=== PATIENT | female | born 1945 | race Caucasian/White ===

== ENCOUNTER 2017-06-13 08:51 | Inpatient (IN) | payer MEDICAID ==
[~2017-06-13] VITALS: Ht 149.9 cm; Wt 65.1 kg
[2017-06-13] MEDS ORDERED: PIPER-TAZO 3.375 GM IV (PMX) 100 ML IVPB STA (09:17)
[2017-06-13] MEDS ORDERED: morphine 4 MG/ML VIAL IV STA ×3 (09:17→13:43)
[2017-06-13] MEDS ORDERED: SODIUM CHLORIDE 0.9% 1L BAG IV* STA (09:17)
[2017-06-13] MEDS ORDERED: ONDANSETRON 4 MG INJ IV STA (09:17)
[2017-06-13] MEDS ORDERED: VANCOMYCIN 1 GM (PMX) 250 ML IVPB ONE (09:30)
[2017-06-13 09:50] LABS: BASOPHILS % 0.4 % (0.0-2.0); EOSINOPHILS # 0.2 10^3/ul (0.0-0.5); EOSINOPHILS % 3.7 % (0.0-7.0); HEMATOCRIT 33.8 % (37.0-47.0); HEMOGLOBIN 11.6 g/dl (12.0-16.0); LYMPHOCYTES # 1.4 10^3/ul (0.8-2.9); LYMPHOCYTES % 29.3 % (15.0-51.0); MEAN CORPUSCULAR HEMOGLOBIN 31.6 pg (29.0-33.0); MEAN CORPUSCULAR HGB CONC 34.3 g/dl (32.0-37.0); MEAN CORPUSCULAR VOLUME 92.1 fl (82.0-101.0); MEAN PLATELET VOLUME 10.9 fl (7.4-10.4); MONOCYTE # 0.5 10^3/ul (0.3-0.9); MONOCYTES % 9.8 % (0.0-11.0); NEUTROPHILS % 56.6 % (39.0-77.0); PLATELET COUNT 241 10^3/UL (140-415); RED BLOOD COUNT 3.67 10^6/ul (4.20-5.40); RED CELL DISTRIBUTION WIDTH 12.9 % (11.5-14.5); WHITE BLOOD COUNT 4.8 10^3/ul (4.8-10.8)
--- NOTE | 2017-06-13 09:59 | RADRPT ---
PROCEDURE: XR Tibia and Fibula. CLINICAL INDICATION: Leg wound TECHNIQUE: Two views of the left tibia and fibula are available for review. COMPARISON: None available FINDINGS: There is soft tissue swelling at the lower extremity. There is no acute osseous abnormality or evid ence of fracture. Minimal, nonspecific cortical hypertrophy seen at the medial lateral aspect of th e distal fibula without aggressive appearance. No soft tissue gas identified. IMPRESSION: 1. Soft tissue swelling of the lower leg. 2. No cortical destruction or soft tissue gas is seen. RPTAT: UU .Abner Lopes MD, MD Date Time Electronically viewed and signed by .Abner Lopes MD, on 06/13/2017 09:59 .d/
[2017-06-13 10:09] LABS: INR 0.95; PARTIAL THROMBOPLASTIN TIME 31.4 Sec (25.0-35.0); PROTIME 12.7 Sec (12.2-14.2)
[2017-06-13 10:16] LABS: ALBUMIN 3.7 g/dl (3.3-4.9); ALBUMIN/GLOBULIN RATIO 1.12; BILIRUBIN,INDIRECT 0.2 mg/dl (0-1.1); BILIRUBIN,TOTAL 0.2 mg/dl (0.2-1.3); C-REACTIVE PROTEIN 1.4 mg/dl (0.0-0.9); CALCIUM 8.7 mg/dl (8.4-10.2); CREATININE 0.65 mg/dl (0.44-1.00); POTASSIUM 3.9 mmol/L (3.5-5.1)
--- NOTE | 2017-06-13 10:20 | RADRPT ---
PROCEDURE: Ultrasound of the left lower extremity venous system. CLINICAL INDICATION: Left leg pain and swelling, deep venous thrombosis TECHNIQUE: Abebe scale with and without compression, color doppler, spectral doppler of the venous system of the left lower extremity was performed. Venous augmentation maneuvers were utilized. COMPARISON: No prior studies are available for comparison. FINDINGS: Common femoral vein: Patent. Femoral vein: Patent. Popliteal vein: Echogenic thrombus which is nonocclusive. Calf veins: Patent. No soft tissue abnormalities are identified. IMPRESSION: Chronic echogenic nonocclusive deep venous thrombus within the left popliteal vein. No evidence of acute deep venous thrombosis. RPTAT: AADD .Robert Salmon MD, MD Date Time Electronically viewed and signed by .Robert Salmon MD, on 06/13/2017 10:20 .B/
[2017-06-13 10:47] VITALS: PULSE 73; TEMP 97.5
[2017-06-13] MEDS ORDERED: ACETAMINOPHEN 325 MG TAB PO PRN ×2 (12:00→13:00)
[2017-06-13] MEDS ORDERED: ONDANSETRON 4 MG INJ IV PRN ×2 (12:00→13:00)
[2017-06-13] MEDS ORDERED: APIXABAN 5 MG TABLET PO ONE (12:00)
[2017-06-13] MEDS ORDERED: NACL 0.9% 3 ML SYG IV SCH (13:00)
[2017-06-13] MEDS ORDERED: ACETAMINOPHEN 650 MG SUPP PR PRN (13:00)
[2017-06-13] MEDS ORDERED: DOCUSATE SODIUM 100 MG CAP PO PRN (13:00)
[2017-06-13] MEDS ORDERED: BISACODYL 10 MG SUPP PR PRN (13:00)
[2017-06-13] MEDS ORDERED: HYDROCODONE/APAP (5/325) TAB PO PRN ×2 (13:00)
[2017-06-13] MEDS ORDERED: MAGNESIUM HYDROXIDE 30ML CUP PO PRN (13:00)
--- NOTE | 2017-06-13 13:50 | ERA ---
ER Documentation Chief Complaint Date/Time DATE: 06/13/17 TIME: 13:42 Chief Complaint LT FOOT ULCER X5 DAYS HPI This is a 72-year-old female, Latvian-speaking. 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 The family is mostly providing the history. It appears the patient has chronic venous stasis the left lower extremity. She does not follow up with the primary care physician on a regular basis last visit greater than 1 year ago. The family has noted that there is an ulceration to the medial aspect of the left leg causing significant pain that is 8 out of 10 and throbbing. No significant drainage or discharge. Patient denies any chest pain or shortness of breath. She has never been diagnosed with a DVT before. She does not take any medications on a regular basis. ROS All systems reviewed and are negative except as per history of present illness. Medications Home Meds No Active Prescriptions or Reported Meds Allergies Allergies: Coded Allergies: No Known Allergy (Unverified , 06/13/17) PMhx/Soc Medical and Surgical Hx: pt denies Medical Hx, pt denies Surgical Hx Hx Alcohol Use: No Hx Substance Use: No Hx Tobacco Use: No Smoking Status: Never smoker FmHx Family History: No diabetes Physical Exam Vitals Vital Signs Date Time Temp Pulse Resp B/P Pulse Ox O2 Delivery O2 Flow Rate FiO2 06/13/17 10:47 97.5 73 17 147/68 100 Room Air 06/13/17 09:45 Nasal Cannula 2 06/13/17 08:59 98.4 80 20 142/70 98 Physical Exam General: Well developed, well nourished, no acute distress Head: Normocephalic, atraumatic. Eyes: Pupils equally reactive, EOM intact ENT: Moist mucous membranes Neck: Supple, no lymphadenopathy Respiratory: Lungs clear bilaterally, no distress Cardiovascular: RRR, no murmurs, rubs, or gallops Abdominal: Soft, non-tender, non-distended, no peritoneal signs : Deferred MSK: Left lower extremity with venous stasis dermatitis with an ulceration approximately 2.5 cm in diameter to the medial aspect without crepitus drainage or discharge. The patient does have 2+ dorsalis pedis and posterior tibial pulses. No significant unilateral swelling is noted. Negative Homans sign. No crepitus to the leg. Neurologic: Alert and oriented, moving all extremities, normal speech, no focal weakness, no cerebellar signs Skin: As documented above Psych: Normal mood Result Diagram: 06/13/17 0925 06/13/17 0925 Results 24 hrs Laboratory Tests Test 06/13/17 09:17 06/13/17 09:25 06/13/17 11:08 06/13/17 13:18 Erythrocyte Sedimentation Rate 29.0mm/Hr White Blood Count 4.810^3/ul Red Blood Count 3.6710^6/ul Hemoglobin 11.6g/dl Hematocrit 33.8% Mean Corpuscular Volume 92.1fl Mean Corpuscular Hemoglobin 31.6pg Mean Corpuscular Hemoglobin Concent 34.3g/dl Red Cell Distribution Width 12.9% Platelet Count 15578^3/UL Mean Platelet Volume 10.9fl Neutrophils % 56.6% Lymphocytes % 29.3% Monocytes % 9.8% Eosinophils % 3.7% Basophils % 0.4% Nucleated Red Blood Cells % 0.0/100WBC Neutrophils # (Manual) 2.710^3/ul Lymphocytes # 1.410^3/ul Monocytes # 0.510^3/ul Eosinophils # 0.210^3/ul Basophils # 0.010^3/ul Nucleated Red Blood Cells # 0.010^3/ul Prothrombin Time 12.7Sec Prothrombin Time Ratio 1.0 INR International Normalized Ratio 0.95 Activated Partial Thromboplast Time 31.4Sec Sodium Level 140mmol/L Potassium Level 3.9mmol/L Chloride Level 109mmol/L Carbon Dioxide Level 23mmol/L Anion Gap 12 Blood Urea Nitrogen 11mg/dl Creatinine 0.65mg/dl Glucose Level 97mg/dl Lactic Acid Level 1.4mmol/L 1.4mmol/L 1.2mmol/L Calcium Level 8.7mg/dl Total Bilirubin 0.2mg/dl Direct Bilirubin 0.00mg/dl Indirect Bilirubin 0.2mg/dl Aspartate Amino Transf (AST/SGOT) 25IU/L Alanine Aminotransferase (ALT/SGPT) 25IU/L Alkaline Phosphatase 88IU/L C-Reactive Protein 1.4mg/dl Total Protein 7.0g/dl Albumin 3.7g/dl Globulin 3.30g/dl Albumin/Globulin Ratio 1.12 Current Medications Medications (Trade) Dose Ordered Sig/Jadon Route PRN Reason Start Time Stop Time Status Last Admin Dose Admin Sodium Chloride (NS) 2,200 ml BOLUS OVER 2 HOURS STAT IV* 06/13/17 09:17 06/13/17 09:21 DC 06/13/17 09:51 Morphine Sulfate (morphine) 4 mg ONCE STAT IV 06/13/17 09:17 06/13/17 09:21 DC 06/13/17 09:51 Ondansetron HCl 4 mg 4 mg ONCE STAT IV 06/13/17 09:17 06/13/17 09:21 DC 06/13/17 09:51 Vancomycin HCl 250 ml @ 125 mls/hr ONCE ONCE IVPB 06/13/17 09:30 06/13/17 11:29 DC 06/13/17 09:30 Piperacillin Sod/ Tazobactam Sod (Zosyn 3.375gm/ 100 ml (Pmx)) 100 ml @ 200 mls/hr ONCE STAT IVPB 06/13/17 09:17 06/13/17 09:46 DC 06/13/17 09:51 Morphine Sulfate (morphine) 4 mg ONCE STAT IV 06/13/17 10:50 06/13/17 10:51 DC 06/13/17 10:55 Ondansetron HCl (Zofran Inj) 4 mg BRIDGE ORDER PRN IV NAUSEA AND/OR VOMITING 06/13/17 12:00 06/14/17 11:59 Acetaminophen (Tylenol Tab) 650 mg ER BRIDGE PRN PO MILD PAIN/FEVER 06/13/17 12:00 06/14/17 11:59 Apixaban (Eliquis) 10 mg ONCE ONCE PO 06/13/17 12:00 06/13/17 12:01 DC 06/13/17 12:43 IV Flush (NS 3 ml) 3 ml PER PROTOCOL IV 06/13/17 13:00 Ondansetron HCl (Zofran Inj) 4 mg Q6H PRN IV NAUSEA AND/OR VOMITING 06/13/17 13:00 Acetaminophen (Tylenol Tab) 650 mg Q6H PRN PO PAIN LEVEL 1-3 OR FEVER 06/13/17 13:00 Acetaminophen (Tylenol Supp) 650 mg Q6H PRN [place] PAIN LEVEL 1-3 OR FEVER 06/13/17 13:00 Acetaminophen/ Hydrocodone Bitart ([place] (5/325)) 1 tab Q6H PRN PO MODERATE PAIN LEVEL 4-6 06/13/17 13:00 Acetaminophen/ Hydrocodone Bitart ([place] (5/325)) 2 tab Q6H PRN PO SEVERE PAIN LEVEL 7-10 06/13/17 13:00 Morphine Sulfate (morphine) 2 mg Q4H PRN IV SEVERE PAIN LEVEL 7-10 06/13/17 13:00 Docusate Sodium (Colace) 100 mg Q12H PRN PO CONSTIPATION 06/13/17 13:00 Magnesium Hydroxide (Milk Of Mag) 30 ml DAILY PRN PO CONSTIPATION 06/13/17 13:00 Bisacodyl (Dulcolax Supp) 10 mg DAILY PRN [place] CONSTIPATION 06/13/17 13:00 Famotidine (Pepcid Iv) 20 mg DAILY IV 06/14/17 09:00 Procedures/MDM EKG, MONITORS, & DIAGNOSTIC IMAGING: Lower extremity duplex: IMPRESSION: Chronic echogenic nonocclusive deep venous thrombus within the left popliteal vein. No evidence of acute deep venous thrombosis. RPTAT: AADD X-ray left tib-fib: I reviewed and interpreted multiple views of the x-ray Bones: No evidence of acute fracture dislocation or subluxation Soft tissue: No evidence of foreign body, no free air LAB INTERPRETATION: No significant leukocytosis or coagulopathy. MEDICAL DECISION MAKING: The patient presents with multiple complaints that include an ulceration to the left lower extremity. The patient does not have regular follow-up with primary care physician, strong concern for possible underlying diabetes versus peripheral vascular disease. The patient does not have evidence of acute vascular occlusion given strong distal pulses. This is likely secondary to chronic venous insufficiency. However the patient is having significant amount of pain and warrants laboratory testing and diagnostic imaging. Low clinical concern for necrotizing process per ER COURSE: The patient has normal lactic acid and normal white count. The patient's auditory testing does not suggest acute necrotizing process. X-ray imaging shows no free air. However, the patient also has a chronic DVT. Unclear how long this has been here. No signs or symptoms concerning for pulmonary embolism. Given that the patient does not have contraindications to anticoagulation I believe a single dose of Eliquis would be appropriate until further risk stratification can be obtained. Given the complexity of her presentation as well as the fact that she requires further pain medication IV antibiotics provided and inpatient hospitalization most appropriate. I kept the patient and/or family informed of laboratory and diagnostic imaging results throughout the emergency room course. DISPOSITION PLAN: [facility] admission CONSULTATION: Accepting care team and consultations: I discussed the current laboratory data, diagnostic imaging and emergency care provided. Admitting team: Dr. Matute Admitting team indication: Insurance directed Departure Diagnosis: Primary Impression: Venous stasis ulcer with edema of lower leg Additional Impression: Left leg DVT Qualified Code: I82.502 - Chronic deep vein thrombosis (DVT) of left lower extremity, unspecified vein Condition: Stable OLIVA GUTHRIE MD Jun 13, 2017 13:50
[2017-06-13 15:06] VITALS: BP 156/87; RESP 18
--- NOTE | 2017-06-13 15:42 | HP ---
Date/Time of Note Date/Time of Note DATE: 06/13/17 TIME: 15:35 Assessment/Plan VTE Prophylaxis VTE Prophylaxis Intervention: SCD's Assessment/Plan Chief Complaint/Hosp Course Impression and plan 1. Left lower extremity ulceration (suspect venous ulcer). Will get wound culture. Vascular surgeon consulted as well. Start antibiotic for now. Wound care consult consulted. Will follow up. 2. Chronic echogenic nonocclusive deep venous thrombus in the left popliteal vein. Vascular surgeon to follow. Follow-up with recommendations. Patient is on DVT prophylaxis. No evidence of acute DVT per venous Doppler of left lower extremity. 3. Anemia. Follow-up on iron panel. Admission process 40 minutes Discussed plan of care with Dr. Matute Problems: HPI/ROS Admit Date/Time Admit Date/Time Jun 13, 2017 at 12:01 Hx of Present Illness This is a 72-year-old female with no reported past medical history who came to [facility] due to worsening of left lower extremity pain. It was reported that patient suffered from a fall several months ago resulted in left knee pain as well as left maher/ankle discoloration. She was able to ambulate on it. She did report that over the past 5 days that there was an ulcer on her left lower extremity and worse pain. He does appear to be from a chronic venous stasis ulcer. She did have left lower extremity ultrasound done that did show chronic echogenic nonocclusive deep venous thrombus within the left popliteal vein. There are no evidence of acute DVT. Tibia-fibula x-ray also showed soft tissue swelling around her leg but no cortical destruction or soft tissue gas seen. Patient also reported having subjective fevers at home as high as 100. White count on arrival was 4.8. Lactic acid was also noted 1.4. Patient remained afebrile on arrival. She does report more difficulty with ambulation on left lower extremity. We will evaluate her for the aformentiond issues. ROS 12 point review of systems obtained and entirely negative except that mentioned in the history of present illness PMH/Family/Social Past Medical History Medical/surgical history 1. No reported past medical history Social History Alcohol Use: none Smoking Status: Never smoker Drug Use: none Exam/Review of Systems Vital Signs Vitals Vital Signs Date Time Temp Pulse Resp B/P Pulse Ox O2 Delivery O2 Flow Rate FiO2 06/13/17 15:06 97.6 65 18 156/87 98 06/13/17 10:47 Room Air 06/13/17 09:45 2 Exam Constitutional: alert, oriented Psych: nl mood/affect Eyes: nl conjunctiva Respiratory: clear to auscultation, normal air movement Cardiovascular: regular rate and rhythm Gastrointestinal: non-tender, soft Musculoskeletal: swelling (Noted on left lower extremity with brownish discoloration. Pulses +2 bilateral lower extremities), No nl gait and stance Neurological: MOTOR AND CONTROLS TESTER II-XII intact, nl mental status, nl speech Skin: other (Ulceration noted on inner portion of left maher) Labs Result Diagram: 06/13/1792406/13/17924 Medications Medications Current Medications Ondansetron HCl (Zofran Inj) 4 mg Q6H PRN IV NAUSEA AND/OR VOMITING; Start 06/13 at 13:00 Acetaminophen (Tylenol Tab) 650 mg Q6H PRN PO PAIN LEVEL 1-3 OR FEVER; Start at 13:00 Acetaminophen (Tylenol Supp) 650 mg Q6H PRN [place] PAIN LEVEL 1-3 OR FEVER; Start 06/13/17 at 13:00 Acetaminophen/ Hydrocodone Bitart ([place] (5/325)) 1 tab Q6H PRN PO MODERATE PAIN LEVEL 4-6; Start 06/13/17 at 13:00 Acetaminophen/ Hydrocodone Bitart ([place] (5/325)) 2 tab Q6H PRN PO SEVERE PAIN LEVEL 7-10 Last administered on 06/13/17t 13:46; Admin Dose 2 TAB; Start 06/13/17 at 13:00 Morphine Sulfate (morphine) 2 mg Q4H PRN IV SEVERE PAIN LEVEL 7-10; Start at 13:00 Docusate Sodium (Colace) 100 mg Q12H PRN PO CONSTIPATION; Start 06/13/17 at 13: 00 Magnesium Hydroxide (Milk Of Mag) 30 ml DAILY PRN PO CONSTIPATION; Start at 13:00 Bisacodyl (Dulcolax Supp) 10 mg DAILY PRN [place] CONSTIPATION; Start 06/13/17 at 13: 00 Famotidine (Pepcid Iv) 20 mg DAILY IV ; Start 06/14/17 at 09:00 ELIDA NOGUEIRA Jun 13, 2017 15:42
[2017-06-13] MEDS: morphine 2 MG INJ IV PRN (15:43)
[2017-06-13 15:50] VITALS: Ht 149.9 cm; Wt 65.1 kg
[2017-06-13] MEDS ORDERED: VANCOMYCIN IV PER PHARMACY XX SCH (16:00)
[2017-06-13 16:54] LABS: IRON 36 ug/dl (35-150)
[2017-06-13 17:03] LABS: TOTAL IRON BINDING CAPACITY 277 ug/dl (241-421)
[2017-06-13] MEDS: HEPARIN 5,000 UNIT/0.5 ML VIAL SC SCH (20:23)
[2017-06-13 20:52] VITALS: BP 168/72; RESP 19
[2017-06-13] MEDS ORDERED: PENDING SANTYL ORDER FOR WOUND CARE XX PRN (21:00)
[2017-06-14 02:35] VITALS: BP 139/63; RESP 19
[2017-06-14] MEDS: morphine 2 MG INJ IV PRN ×4 (04:16→19:40)
[2017-06-14] MEDS: VANCOMYCIN 1 GM in NS 250 ML IVPB SCH (04:36)
[2017-06-14 05:56] LABS: ALBUMIN 3.4 g/dl (3.3-4.9); ALBUMIN/GLOBULIN RATIO 1.06; BILIRUBIN,INDIRECT 0.4 mg/dl (0-1.1); BILIRUBIN,TOTAL 0.4 mg/dl (0.2-1.3); CALCIUM 8.5 mg/dl (8.4-10.2); CHOL/HDL RATIO 3.7 RATIO; CREATININE 0.57 mg/dl (0.44-1.00); PHOSPHORUS 3.2 mg/dl (2.5-4.9); POTASSIUM 3.9 mmol/L (3.5-5.1); TOTAL PROTEIN 6.6 g/dl (6.1-8.1)
[2017-06-14 06:20] LABS: T3 UPTAKE 35.1 % (23.5-40.5)
[2017-06-14 06:38] LABS: THYROID STIMULATING HORMONE 2.96 MIU/L (0.465-4.680)
[2017-06-14 07:15] VITALS: BP 168/78; RESP 18
[2017-06-14] MEDS: FAMOTIDINE 20 MG INJ IV SCH (08:32)
[2017-06-14] MEDS: HEPARIN 5,000 UNIT/0.5 ML VIAL SC SCH ×2 (08:32→20:29)
--- NOTE | 2017-06-14 10:55 | PN ---
Date/Time of Note Date/Time of Note DATE: 06/14/17 TIME: 10:55 Assessment/Plan VTE Prophylaxis VTE Prophylaxis Intervention: heparin Lines/Catheters IV Catheter Type (from [facility]): Saline Lock Assessment/Plan Chief Complaint/Hosp Course Impression and plan 1. Left lower extremity ulceration (suspect venous ulcer). Will get wound culture. Vascular surgeon consulted as well. Continue antibiotic. Discussed with vascular surgeon, patient noted with venous reflux on left lower extremity. Will wrap legs with compression dressings per vascular surgeon recommendations.. 2. Chronic echogenic nonocclusive deep venous thrombus in the left popliteal vein. Vascular surgeon following. Follow-up with recommendations. Patient is on DVT prophylaxis. No evidence of acute DVT per venous Doppler of left lower extremity. 3. Anemia. Stable. Will monitor. Disposition and plan: Still difficult to fibrillation. Physical therapy evaluation to follow. Continue antibiotics for now. Patient will need outpatient follow-up with vascular surgeon upon discharge. Discussed plan of care with Dr. Matute Problems: Subjective 24 Hr Interval Summary Free Text/Dictation Still reports having some pain on left lower extremity and difficulty with ambulation Exam/Review of Systems Vital Signs Vitals Vital Signs Date Time Temp Pulse Resp B/P Pulse Ox O2 Delivery O2 Flow Rate FiO2 06/14/17 07:15 98.1 71 18 168/78 96 06/13/17 10:47 Room Air 06/13/17 09:45 2 Intake and Output 06/13/17 06/13/17 06/14/17 15:00 23:00 07:00 Intake Total 300 ml Balance 300 ml Exam Constitutional: alert, oriented Psych: nl mood/affect Eyes: nl conjunctiva Respiratory: clear to auscultation, normal air movement Cardiovascular: regular rate and rhythm Gastrointestinal: non-tender, soft Musculoskeletal: swelling (Noted on left lower extremity with brownish discoloration. Pulses +2 bilateral lower extremities), No nl gait and stance Neurological: SALES INTERN II-XII intact, nl mental status, nl speech Skin: other (Ulceration noted on inner portion of left maher) Results Result Diagram: 06/13/17 0925 06/14/17 0453 Results 24 hrs Laboratory Tests Test 06/13/17 11:08 06/13/17 13:18 06/13/17 16:11 06/14/17 04:52 Lactic Acid Level 1.4 1.2 Iron Level 36 Total Iron Binding Capacity 277 Percent Iron Saturation 13 L Hemoglobin A1c 5.7 Test 06/14/17 04:53 Sodium Level 140 Potassium Level 3.9 Chloride Level 107 Carbon Dioxide Level 28 Anion Gap 9 Blood Urea Nitrogen 8 Creatinine 0.57 Glucose Level 95 Calcium Level 8.5 Phosphorus Level 3.2 Magnesium Level 2.0 Total Bilirubin 0.4 Direct Bilirubin 0.00 Indirect Bilirubin 0.4 Aspartate Amino Transf (AST/SGOT) 22 Alanine Aminotransferase (ALT/SGPT) 22 Alkaline Phosphatase 80 Total Protein 6.6 Albumin 3.4 Globulin 3.20 Albumin/Globulin Ratio 1.06 Triglycerides Level 92 Cholesterol Level 151 LDL Cholesterol, Calculated 93 HDL Cholesterol 40 Cholesterol/HDL Ratio 3.7 Thyroid Stimulating Hormone (TSH) 2.960 Free Thyroxine Index 2.95 Thyroxine (T4) 8.4 Triiodothyronine (T3) Uptake 35.1 Medications Medications Current Medications Ondansetron HCl (Zofran Inj) 4 mg Q6H PRN IV NAUSEA AND/OR VOMITING; Start 06/13 at 13:00 Acetaminophen (Tylenol Tab) 650 mg Q6H PRN PO PAIN LEVEL 1-3 OR FEVER; Start at 13:00 Acetaminophen (Tylenol Supp) 650 mg Q6H PRN [place] PAIN LEVEL 1-3 OR FEVER; Start 06/13/17 at 13:00 Acetaminophen/ Hydrocodone Bitart ([place] (5/325)) 1 tab Q6H PRN PO MODERATE PAIN LEVEL 4-6; Start 06/13/17 at 13:00 Acetaminophen/ Hydrocodone Bitart ([place] (5/325)) 2 tab Q6H PRN PO SEVERE PAIN LEVEL 7-10 Last administered on 06/13/17 13:46; Admin Dose 2 TAB; Start 06/13/17 at 13:00 Morphine Sulfate (morphine) 2 mg Q4H PRN IV SEVERE PAIN LEVEL 7-10 Last administered on 06/14/17 08:42; Admin Dose 2 MG; Start 06/13/17 at 13:00 Docusate Sodium (Colace) 100 mg Q12H PRN PO CONSTIPATION; Start 06/13/17 at 13: 00 Magnesium Hydroxide (Milk Of Mag) 30 ml DAILY PRN PO CONSTIPATION; Start at 13:00 Bisacodyl (Dulcolax Supp) 10 mg DAILY PRN [place] CONSTIPATION; Start 06/13/17 at 13: 00 Famotidine (Pepcid Iv) 20 mg DAILY IV Last administered on 06/14/17 08:32; Admin Dose 20 MG; Start 06/14/17 at 09:00 Heparin Sodium (Porcine) 5000 unit 5,000 unit BID SC Last administered on 08:32; Admin Dose 5,000 UNIT; Start 06/13/17 at 21:00 Vancomycin HCl (Vancocin) 250 ml @ 125 mls/hr Q24H IVPB Last administered on 04:36; Admin Dose 125 MLS/HR; Start 06/14/17 at 05:00 [facility] This patient [place]... PRN PRN XX WOUND CARE; Start 06/13/17 at 21:00 ELIDA NOGUEIRA Jun 14, 2017 10:55
[2017-06-14 14:00] VITALS: BP 129/62; RESP 18
[2017-06-14 19:57] VITALS: BP 130/57; RESP 21
[2017-06-14 20:00] VITALS: BP 147/64; RESP 20
[2017-06-15] MEDS: morphine 2 MG INJ IV PRN ×4 (01:55→20:56)
[2017-06-15 02:00] VITALS: BP 145/64; RESP 19
[2017-06-15] MEDS: VANCOMYCIN 1 GM in NS 250 ML IVPB SCH (04:59)
[2017-06-15 08:00] VITALS: BP 144/68; RESP 19
[2017-06-15] MEDS: FAMOTIDINE 20 MG INJ IV SCH (08:45)
[2017-06-15] MEDS: HEPARIN 5,000 UNIT/0.5 ML VIAL SC SCH ×2 (08:49→20:55)
--- NOTE | 2017-06-15 12:17 | PN ---
Date/Time of Note Date/Time of Note DATE: 06/15/17 TIME: 12:14 Assessment/Plan VTE Prophylaxis VTE Prophylaxis Intervention: heparin Lines/Catheters IV [facility] Type (from [facility] Saline Lock Urinary Cath still in place: No Assessment/Plan Chief Complaint/Hosp Course 1. Left lower extremity venous stasis ulcer. Wound culture negative so far. On empiric antibiotics. Left lower extremity venous Doppler study positive for chronic nonocclusive DVT within the left popliteal vein. Vascular Surgery has been consulted. 2. Normocytic, normochromic anemia. Iron panel showing low iron saturation. 3. Debility. Status post evaluation by physical therapy. 4. Fluids, electrolytes, and nutrition. Regular diet. 5. DVT prophylaxis. Subcutaneous heparin. 6. Plan. Continue empiric antibiotics. Await wound care evaluation. Case discussed with Dr. Coreas. Problems: Subjective 24 Hr Interval Summary Free Text/Dictation Complains of left foot pain. Exam/Review of Systems Vital Signs Vitals Vital Signs Date Time Temp Pulse Resp B/P Pulse Ox O2 Delivery O2 Flow Rate FiO2 06/15/17 02:00 98.3 76 19 145/64 94 06/13/17 10:47 Room Air 06/13/17 09:45 2 Intake and Output 06/14/17 06/14/17 06/15/17 15:00 23:00 07:00 Intake Total 660 ml 470 ml Balance 660 ml 470 ml Exam General: Adequately build 72 year-old female lying in bed in no apparent distress. HEENT: Normocephalic, atraumatic. Eyes: Anicteric sclerae, conjunctivae clear. ENT: Nasal septum midline, oral mucosa moist. Neck supple, no JVD noticed. Respiratory: Bilaterally clear breath sounds. No use of accessory muscles of respiration. No adventitious breath sounds. Cardiovascular: S1, S2 heard. No murmurs or gallops. Abdomen: Soft, nontender, and nondistended. Bowel sounds positive in all 4 quadrants. Genitourinary: Deferred. Extremities: No cyanosis, no clubbing. Left foot edema. Peripheral pulses palpable. Left foot dressing. Neurologic: Cranial nerves II through XII grossly intact. The patient is awake, alert, and oriented. Skin: Normal skin turgor. No skin rashes. Results Result Diagram: 06/13/17 0925 06/14/17 0453 Medications Medications Current Medications Ondansetron HCl (Zofran Inj) 4 mg Q6H PRN IV NAUSEA AND/OR VOMITING; Start 06/13 at 13:00 Acetaminophen (Tylenol Tab) 650 mg Q6H PRN PO PAIN LEVEL 1-3 OR FEVER; Start at 13:00 Acetaminophen (Tylenol Supp) 650 mg Q6H PRN [place] PAIN LEVEL 1-3 OR FEVER; Start 06/13/17 at 13:00 Acetaminophen/ Hydrocodone Bitart ([place] (5/325)) 1 tab Q6H PRN PO MODERATE PAIN LEVEL 4-6; Start 06/13/17 at 13:00 Acetaminophen/ Hydrocodone Bitart ([place] (5/325)) 2 tab Q6H PRN PO SEVERE PAIN LEVEL 7-10 Last administered on 06/13/17 13:46; Admin Dose 2 TAB; Start 06/13/17 at 13:00 Morphine Sulfate (morphine) 2 mg Q4H PRN IV SEVERE PAIN LEVEL 7-10 Last administered on 06/15/17 08:45; Admin Dose 2 MG; Start 06/13/17 at 13:00 Docusate Sodium (Colace) 100 mg Q12H PRN PO CONSTIPATION; Start 06/13/17 at 13: 00 Magnesium Hydroxide (Milk Of Mag) 30 ml DAILY PRN PO CONSTIPATION; Start at 13:00 Bisacodyl (Dulcolax Supp) 10 mg DAILY PRN [place] CONSTIPATION; Start 06/13/17 at 13: 00 Famotidine (Pepcid Iv) 20 mg DAILY IV Last administered on 06/15/17 08:45; Admin Dose 20 MG; Start 06/14/17 at 09:00 Heparin Sodium (Porcine) 5000 unit 5,000 unit BID SC Last administered on 08:49; Admin Dose 5,000 UNIT; Start 06/13/17 at 21:00 Vancomycin HCl (Vancocin) 250 ml @ 125 mls/hr Q24H IVPB Last administered on 04:59; Admin Dose 125 MLS/HR; Start 06/14/17 at 05:00 Miscellaneous Information (Pending [facility] Order For Wound Care) This patient [place]... PRN PRN XX WOUND CARE; Start 06/13/17 at 21:00 SHAHEED BILLINGSLEY NP Jun 15, 2017 12:16
[2017-06-15 14:00] VITALS: BP 126/64; RESP 19
--- NOTE | 2017-06-15 19:35 | PN ---
Date/Time of Note Date/Time of Note DATE: 06/15/17 TIME: 19:17 Assessment/Plan Lines/Catheters IV Catheter Type (from Nrs): Saline Lock Cantu in Place (from Nrs): No Assessment/Plan Chief Complaint/Hosp Course bilateral lower extremity venous insufficiency with LLE ulcer (CEAP classification 6): It seems the patient has had history of venous insufficiency that has become worse, associated with LLE>RLE swelling, discomfort, and itching. that now has developed an ulcer. Will schedule for her to undergo reflux studies as an outpt -Recommend antibiotics to resolve the cellulitis -Will recommend two layer compression dressing for her venous insufficiency -Apply santyl for now to the ulcer -Optimize vascular studies (BP meds, cholesterol, antiplatelets, weight loss, sugar control, antiplatelets) -Discussed findings, plan and management with the patient with certified medical physiologist and she understands -Thank you for allowing us to partake in the care of your patient, please call with any questions Problems: Subjective 24 Hr Interval Summary no new vascular events overnight Exam/Review of Systems Vital Signs Vitals Vital Signs Date Time Temp Pulse Resp B/P Pulse Ox O2 Delivery O2 Flow Rate FiO2 06/15/17 08:00 97.8 74 19 144/68 98 06/13/17 10:47 Room Air 06/13/17 09:45 2 Intake and Output 06/14/17 06/14/17 06/15/17 15:00 23:00 07:00 Intake Total 660 ml 470 ml Balance 660 ml 470 ml Exam Free Text/Dictation A&O x3 CTAB S1S2 Soft NTND BS+ truncal obesity LLE: palpable femoral pulse, palpable pedal pulse, motor/sensory intact, cap refill 3seconds, lateral malleolar ulcer with surrounding erythema, tender upon palpation Results Result Diagram: 06/13/17 0925 06/14/17 0453 INGRID BARAJAS MD Jun 15, 2017 19:35
[2017-06-15 20:07] VITALS: BP 133/60; RESP 18
[2017-06-16 02:15] VITALS: BP 137/65; RESP 18
[2017-06-16 04:08] LABS: BASOPHILS % 0.5 % (0.0-2.0); EOSINOPHILS # 0.2 10^3/ul (0.0-0.5); EOSINOPHILS % 5.3 % (0.0-7.0); HEMATOCRIT 35.9 % (37.0-47.0); LYMPHOCYTES # 1.5 10^3/ul (0.8-2.9); LYMPHOCYTES % 34.7 % (15.0-51.0); MEAN CORPUSCULAR HEMOGLOBIN 31.1 pg (29.0-33.0); MEAN CORPUSCULAR HGB CONC 33.4 g/dl (32.0-37.0); MONOCYTE # 0.5 10^3/ul (0.3-0.9); MONOCYTES % 10.7 % (0.0-11.0); NEUTROPHILS % 48.3 % (39.0-77.0); PLATELET COUNT 246 10^3/UL (140-415); RED BLOOD COUNT 3.86 10^6/ul (4.20-5.40); RED CELL DISTRIBUTION WIDTH 12.6 % (11.5-14.5); WHITE BLOOD COUNT 4.4 10^3/ul (4.8-10.8)
[2017-06-16 04:25] LABS: CALCIUM 8.5 mg/dl (8.4-10.2); CREATININE 0.73 mg/dl (0.44-1.00)
[2017-06-16 04:49] LABS: MAGNESIUM 2.1 mg/dl (1.7-2.5); PHOSPHORUS 4.3 mg/dl (2.5-4.9)
[2017-06-16] MEDS: VANCOMYCIN 1 GM in NS 250 ML IVPB SCH (05:10)
[2017-06-16] MEDS ORDERED: PANTOPRAZOLE (EC) 40 MG TAB PO SCH (06:00)
[2017-06-16 08:29] VITALS: BP 135/63; RESP 18
[2017-06-16] MEDS: HEPARIN 5,000 UNIT/0.5 ML VIAL SC SCH (08:43)
[2017-06-16] MEDS ORDERED: LISINOPRIL 5 MG TAB PO SCH (09:00)
[2017-06-16] MEDS ORDERED: COLLAGENASE 30 GM TUBE TOP SCH (12:00)
[2017-06-16 14:18] VITALS: BP 123/61; RESP 16
[2017-06-16] MEDS: morphine 2 MG INJ IV PRN (14:21)
--- NOTE | 2017-06-16 14:48 | PDOCDIS ---
Discharge Instructions DIAGNOSIS Discharge Diagnosis Left lower extremity venous stasis ulcer. CONDITION Patient Condition: Stable HOME CARE INSTRUCTIONS: Diet Instructions: RegularSpecial Diet: Regular FOLLOW UP/APPOINTMENTS Follow-up Plan Jim Moore MD Specialty Vascular Surgery Office Address [address] [place] [address] Office OTHER ORDERS: Other Orders: 1. Take medications as per prescription. 2. Do dressing changes to the left lower extremity as instructed. 3. Activities with assist. 4. Follow-up with Dr. Moore in 1-2 weeks. Please call for appointment. SHAHEED BILLINGSLEY NP Jun 16, 2017 14:48
[2017-06-16] MEDS ORDERED: DOXY100T20 PO (14:50)
[2017-06-16] MEDS ORDERED: SAN30GM TOP ×2 (14:50→14:52)
[2017-06-16] MEDS ORDERED: LISI-313 PO (14:50)
--- NOTE | 2017-06-16 15:24 | HP ---
DATE OF ADMISSION: 06/13/2017 HISTORY OF PRESENT ILLNESS: Dear Doctors, Ms. Hernandez is a 72- year-old female, who presented to us with a left lower extremity worsening lateral malleolar ulcer which seems to be venous stasis that has been getting worse over the past few months. Patient reports having a longstanding history of lower extremity discoloration, discomfort, edema and itching. The patient mentions that she noticed, about 5 days ago, an ulcer developing and gradually getting worse. REVIEW OF SYSTEMS: Fourteen point review performed negative except was mentioned in HPI. PAST MEDICAL HISTORY: Obesity with BMI of 29, and hypertension. SURGICAL HISTORY: None reported. FAMILY HISTORY: Positive for coronary artery disease and diabetes. SOCIAL HISTORY: Denies tobacco, alcohol or illicit drug use. PHYSICAL EXAMINATION: GENERAL APPEARANCE: Alert, oriented x3. No apparent distress. HEENT: Normocephalic, atraumatic. PERRLA. EOMI. Mucosa moist. NECK: Supple. No carotid bruit. LUNGS: Clear to auscultation bilaterally. No crackles. CARDIOVASCULAR: S1, S2 present. No murmurs. ABDOMEN: Soft, nontender, nondistended. Bowel sounds positive. EXTREMITIES: Lower extremities, palpable femoral pulse. Palpable pedal pulse. Motor sensory intact. Capillary refill 2- 3 seconds. Bilateral lower extremity with lipodermatosclerosis telangiectasias spider veins and varicose veins. Left lateral malleolar ulcer with fibrinous necrotic tissue, with surrounding erythema, tender upon palpation and edema of 1+. IMPRESSION: Bilateral lower extremity venous insufficiency and venous stasis ulcer (CEAP classification 6): It seems the patient has developed a venous stasis ulcer of the left lower extremity. This likely contributes to venous into her venous reflux. PLAN: We will plan to obtain venous reflux studies as an outpatient as they were not done as an inpatient. Otherwise, from the standpoint of vascular surgery, apply Santyl local wound care with Melgisorb to be changed every 2-3 days. We will plan to see the patient as an outpatient. Continue with her local wound care. We will plan to address her lower extremity edema, and the patient may require further evaluation of a venogram to evaluate her pervious circulation of the bilateral iliac venous drainage. Optimize vascular status (BP meds, diet, nutrition, exercise, sugar control, antiplatelets). 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 Thank you for allowing us to partake in the care of your patient. Please call with any questions. Dictated By: Jim Moore MD /elizabeth/ava /Document#: [id number]
--- NOTE | 2017-06-16 16:49 | DS ---
DATE OF ADMISSION: 06/13/2017 DATE OF DISCHARGE: 06/16/2017 FINAL DIAGNOSES: 1. Left lower extremity venous stasis ulcer with associated cellulitis. 2. Normocytic normochromic anemia. 3. Debility. 4. Essential hypertension. SOLE TACKER: Dr. Jim Moore, Vascular Surgery. HOSPITAL COURSE: This is a 72-year-old female with no reported past medical history, who came to [facility] due to worsening of left lower extremity pain. The patient also had evidence of left lower extremity chronic wound. Provided the patient's history of present illness, a clinical decision was made to admit the patient to inpatient setting to have her further evaluated. The patient was admitted to inpatient medical surgical floor. The patient was started on empiric antibiotics. Howe cultures were obtained. A Vascular Surgery consult was obtained. Vascular Surgery saw and evaluated the patient and recommended current antibiotic therapy. Vascular Surgery also recommended outpatient reflex studies. Vascular Surgery recommended continuation of antibiotics and local wound care with Santyl. The patient was seen by Wound Care team during the patient's visit. The patient was also noticed to have high blood pressure readings with highest blood pressure 168/78. The patient was started on low-dose ATA inhibitors. The patient was noticed to have a normocytic normochromic anemia. The patient had no evidence of any significant iron deficiency other than a low iron saturation of 13 percent. The patient's H and H remained stable. The patient was noted to be debilitated. The patient was seen by physical therapy. Physical therapy recommended home health physical therapy with potential wheelchair for long distance ambulation. Unfortunately, the patient has no health insurance to arrange home health. The patient was given resources for [place] [facility] followup at amputation prevention at [facility]. The patient had a stable hospital course. DISCHARGE DISPOSITION/PLAN: The patient will be discharged home today. She was instructed to take medications as per prescription. Patient was instructed to do the dressing changes to the left lower extremity as instructed. Activities will be as tolerated. She was instructed to follow up with Dr. Moore in 1-2 weeks. The patient's family verbalized understanding of the discharge instructions. DISCHARGE CONDITION: Stable. DISCHARGE MEDICATIONS: 1. Doxycycline 100 mg by mouth twice day times 10 days. 2. Lisinopril 5 mg by mouth daily. 3. Santyl ointment to left lower extremity wound topically daily. PERTINENT LABORATORY AND DIAGNOSTIC DATA: 1. 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 No evidence of acute DVT. 2. X-ray of the left tibia and fibula. Soft tissue swelling of her lower legs. No cortical destruction or soft tissue gas is seen. 3. Latest CBC, WBC 4.4, hemoglobin 12.9, hematocrit 35.9, and platelet count 246. 4. His latest BMP, sodium 139, potassium 4.2, chloride 105, bicarbonate 20, anion gap 10, BUN 16, and creatinine 0.7. Glucose 102, calcium 8.5. 5. Hemoglobin A1c 5.7. 6. Fasting lipid panel, triglycerides 92, total cholesterol 151, LDL 93, and HDL 42. 7. Iron panel, iron 36, TIBC 277, and iron saturation 13. 8. Blood culture times 2 negative. 9. Left lower extremity wound culture negative. At this time, I would like to thank all the consultants for seeing the patient and providing clinical recommendations. The case and management of this patient was discussed with Dr. Coreas. Approximately 35 minutes were spent on coordinating the discharge on this patient. Dictated By: Parth Us NP /elizabeth/shannon /Document#: [id number] MANINDER
[2017-06-16] MEDS ORDERED: VANCOMYCIN 750 MG in SOD CHLORIDE 0.9% 150 ML IVPB SCH (17:00)
[2017-06-16] MEDS ORDERED: VANCOMYCIN 1.25 GM in SOD CHLORIDE 0.9% 250 ML IVPB SCH (17:00)
== END 2017-06-16 16:58 | disposition home or self-care (01) | DRG 593 ==
LOC: E/R 08:51 → PP2 12:01 → OBSVTOIN 17:49
PROVIDERS: ADMIT Internal Medicine; ATTEND Internal Medicine
DX: L97.929 Non-pressure chronic ulcer of unspecified part of left lower leg with unspecified severity (principal); I82.532 Chronic embolism and thrombosis of left popliteal vein; L03.116 Cellulitis of left lower limb; D64.9 Anemia, unspecified; L97.919 Non-pressure chronic ulcer of unspecified part of right lower leg with unspecified severity; I83.009 Varicose veins of unspecified lower extremity with ulcer of unspecified site; I87.8 Other specified disorders of veins; I87.2 Venous insufficiency (chronic) (peripheral); I10 Essential (primary) hypertension
CPT/HCPCS: 36415; 73590; 80048; 80053; 80061; 80202; 83036; 83540; 83605; 83735; 84100; 84436; 84443; 84479; 85025; 85610; 85651; 85730; 86140; 87040; 87070; 93971; 96374; 96375; 96376; 97116; 97162; 97530; G0378; J1644; J2270; J2405; J2543; J3370; J7030; J7050